=== PATIENT | male | born 1945 | race Caucasian/White ===

== ENCOUNTER → 2018-02-26 10:07 | Outpatient (CLI) | payer MEDICARE, SELFPAY | PROVIDERS: Visit Provider Dermatology | DX: L72.0 Epidermal cyst (principal); L57.0 Actinic keratosis | CPT/HCPCS: 87070; 87077; 87186; 87205 ==

== ENCOUNTER 2021-11-06 20:25 | Emergency (ER) | payer OTHER, SELFPAY ==
[2021-11-06 20:25] VITALS: BP 136/91; PULSE 104; RESP 18; TEMP 36.2; O2SAT 98; BMI 25.0
--- NOTE | 2021-11-06 20:59 | EX.ED.VIS.UR ---
HPI HPI - URI History of Present Illness Chief Complaint: Nosebleed Detail of Chief Complaint: Left sided nosebleed Informant: patient Onset/Context/Timing Onset: Today and Hours Context: Gradual Onset Timing: Continuous Current Severity: Mild Maximum Severity: Mild Narrative Narrative: 76-year-old male on aspirin but no other blood thinners. States he had a spontaneous mild nosebleed from the left side began today around 4 PM. No significant clots. No trauma. No bleeding from the right side. He has had similar nosebleeds before. He has seen ENT in the past. Prior similar symptoms: Yes Recent Illness/Hospitalization: No ROS ROS ED ROS Narrative Denies recent illness. Review of Systems ROS Unobtainable: Denies due to encephalopathy Constitutional Constitutional ED: Denies fever(s) Eyes Eyes: Denies change in vision ENT ENT ED: Denies ear pain Cardiovascular Cardiovascular: Denies chest pain Respiratory/Chest Respiratory/Chest: Denies cough or dyspnea Gastrointestinal Gastrointestinal: Denies abdominal pain, nausea or vomiting Genitourinary Genitourinary ED: Denies dysuria Musculoskeletal Musculoskeletal: Denies myalgias Integumentary Denies rash Neurologic Neurologic: Denies headache(s) Psychiatric Psychiatric: Denies depression Endocrine Endocrinology: Denies polyuria Hematologic/Lymphatic Hematologic/Lymphatic: Denies easy bruising Allergic/Immunologic Allergic/Immunologic ED: Denies urticaria PFSH PFSH Home Medications allopurinol 300 mg PO DAILY 02/02/17 [History Last Taken 02/02/17] amlodipine-benazepril [Lotrel 10-40 MG Capsule] 1 capsule PO DAILY 02/02/17 [History Last Taken 02/02/17] atenolol 25 mg PO DAILY 02/02/17 [History Last Taken 02/02/17] hydrochlorothiazide 25 mg PO DAILY 02/02/17 [History Last Taken 02/02/17] amoxicillin 500 mg PO BID 3 Days #6 cap 11/06/21 [Rx Last Taken Unknown] aspirin 81 mg PO DAILY 11/06/21 [History Last Taken Unknown] Allergy/AdvReac Type Severity Reaction Status Date / Time No Known Allergies Allergy Verified 11/06/21 20:33 Social History Smoking Status: Never smoker EXAM Physical Exam Narrative Exam Narrative: 76 male. Mild nosebleed on the left. No clots. Right side unremarkable. Posterior pharynx there is no bleeding or clots. Neck nontender no lymphadenopathy. Lungs clear to auscultation. Heart regular rhythm no murmur. Abdomen soft nontender. Moving all 4 extremities. No edema. No bruising. Neurologically is awake and alert. Const Vital Signs: 11/06/21 20:25 Temperature 97.1 F L Temperature Source Temporal Pulse Rate 104 H Respiratory Rate 18 Blood Pressure 136/91 H Blood Pressure Mean 106 Pulse Ox 98 Oxygen Delivery Method Room Air Positive well nourished and well developed; Negative for obese, cachectic or contractures General Appearance ED: well developed and NAD; Negative for cachectic, contractures, cyanotic, diaphoretic or pallor Nutritional Appearance: Negative for cachectic or obese HEENT Reports moist mucous membranes normocephalic and atraumatic Eyes PERRL and EOMs intact bilaterally General Eye ED: Negative for pale conjunctiva or scleral icterus Neck no lymphadenopathy, supple, no meningeal signs and no JVD General: Negative for anterior neck swelling or lymphadenopathy Resp normal respiratory effort and clear to auscultation bilaterally Auscultation: Negative for rales, rhonchi or wheezes Cardio S1 normal heart sound, S2 normal heart sound and no murmurs Rate: regular rate Rhythm: regular rhythm GI non-tender, non-distended and no masses Inspection: Negative for abdominal distention Auscultation: normoactive bowel sounds; Negative for hyperactive bowel sounds Palpation: soft; Negative for tender or guarding Back/Spine no CVA tenderness and normal ROM Extremity normal to inspection and full ROM General Extremety ED: Negative for cyanosis or tenderness General Extremity: Negative for cyanosis Neuro oriented x3 Sensorium / Orientation: alert, oriented to person, oriented to place and oriented to time; Negative for orientation impaired, lethargic or stuporous Motor Exam: strength 5/5 throughout Psych mental status grossly normal Attitude: No agitated Mood & Affect: Negative for depressed, anxious or tearful Skin General Skin Exam: Negative for jaundice or pallor Lesions: no lesions Rashes: no rashes MDM MDM MDM Narrative Medical decision making narrative: 76-year-old male with a left anterior nosebleed. There is no trauma. Posterior pharynx and right nares are unremarkable. I placed Afrin-soaked cotton balls in both sides of his nose. Bleeding was well controlled. There is definitely an anterior source. Then I placed a Merisel pack lubricated with antibiotic ointment. Patient tolerated the nasal packing well. Procedures Other Procedures Procedure(s): Left anterior Merisel nasal pack. Patient tolerated well. Lubricated with antibiotic ointment. Discharge Plan Triage Chief Complaint: Nosebleed ED Provider: Clayton Bender Dx/Rx/DC Orders Clinical Impression: Acute anterior epistaxis Instructions: ED Epistaxis (Adult) Prescriptions: New amoxicillin 500 mg capsule 500 mg PO BID 3 Days Qty: 6 RF: 0 No Action atenolol 25 MG tablet 25 mg PO DAILY RF: 0 allopurinol 300 MG tablet 300 mg PO DAILY RF: 0 hydrochlorothiazide 25 MG tablet 25 mg PO DAILY RF: 0 amlodipine-benazepril [Lotrel] 1 CAPSULE capsule 1 capsule PO DAILY RF: 0 aspirin 81 mg Capsule 81 mg PO DAILY RF: 0 Primary Care Provider: Sarah Villar Referrals: Sarah Villar MD [Primary Care Provider] - Buck Kang MD [STAFF PHYSICIAN] - 1-2 Days if not improving Activity Restrictions/Additional Instructions: If it rebleeds and unable to stop return to the emergency department. If it rebleeds hold direct pressure for 20 minutes. Hold your aspirin for the next 2 days. Remove the nasal pack in 2 to 3 days. Follow-up with ear nose and throat doctor if not improving in case need to cauterize it or do a different procedure. Take the antibiotic as long as the packing is in to prevent a sinus infection. Disposition Disposition: Home, Self Care
[2021-11-06 21:33] VITALS: RESP 18
== END 2021-11-06 21:34 | disposition home or self-care (01) ==
PROVIDERS: Emergency Provider Emergency Medicine; PCP Internal Medicine; Visit Provider Emergency Medicine
DX: R04.0 Epistaxis (principal); Z79.82 Long term (current) use of aspirin
CPT/HCPCS: 30901; 99282

== ENCOUNTER 2023-09-20 20:45 | Emergency (ER) | payer MEDICARE, SELFPAY ==
[2023-09-20 20:47] VITALS: BP 158/91; PULSE 99; RESP 16; TEMP 36.6; O2SAT 99; BMI 26.6
--- NOTE | 2023-09-20 21:01 | EDS_ITS ---
HPI History of Present Illness Chief Complaint: Nosebleed Detail of Chief Complaint: Right-sided epistaxis Informant: patient Onset/Context/Timing Onset: Hours (3 hours) Narrative Narrative: Patient presents secondary to right-sided nosebleed for the past 3 hours. He states he has a continuous drip of blood from the right. No recent URI symptoms or facial trauma. He has been seen here in the past with nosebleeds that required packing. He states he has required cautery when following up with ENT. He is currently on baby aspirin daily but no other form of anticoagulation. [facility] Medical History (Updated 09/20/23 @ 22:[address] Clarice Sanchez MD) Gout Hypertension Home Medications allopurinol 300 mg tablet 300 mg PO DAILY 02/02/17 [History Last Taken 02/02/17] amlodipine 10 mg-benazepril 40 mg capsule (Lotrel) 1 capsule PO DAILY 02/02/17 [History Last Taken 02/02/17] atenolol 25 mg tablet 25 mg PO DAILY 02/02/17 [History Last Taken 02/02/17] hydrochlorothiazide 25 mg tablet 25 mg PO DAILY 02/02/17 [History Last Taken 02/02/17] amoxicillin 500 mg capsule 500 mg PO BID 3 days #6 caps 11/06/21 [Rx Last Taken Unknown] aspirin 81 mg capsule 81 mg PO DAILY 11/06/21 [History Last Taken Unknown] Allergy/AdvReac Type Severity Reaction Status Date / Time No Known Allergies Allergy Verified 09/20/23 20:48 Social History Smoking Status: Never smoker ROS [facility] ED Constitutional Constitutional ED: Denies chills or fever(s) Eyes Eyes: Denies discharge from eye(s) ENT ENT ED: Reports other Details: Right nares packed with Kleenex soaked with blood. ; Denies discharge from eye(s), rhinorrhea or sore throat Cardiovascular Cardiovascular: Denies chest pain Respiratory/Chest Respiratory/Chest: Denies cough or dyspnea Gastrointestinal Gastrointestinal: Denies abdominal pain, nausea or vomiting Musculoskeletal Musculoskeletal: Denies back pain or extremity pain Integumentary Denies Abrasions or rash Neurologic Neurologic: Denies headache(s) or weakness Psychiatric Psychiatric: Denies anxiety or depression Allergic/Immunologic Allergic/Immunologic ED: Denies lip swelling or urticaria EXAM Physical Exam Const Vital Signs: 09/20/23 20:47 Temperature 97.8 F Temperature Source Temporal Pulse Rate 99 Respiratory Rate 16 Blood Pressure 158/91 H Blood Pressure Mean 113 Pulse Ox 99 Oxygen Delivery Method Room Air Positive well nourished and well developed General Appearance ED: well developed HEENT Reports moist mucous membranes HEENT Narrative: Blood soaked Kleenex noted in the right nare. Eyes EOMs intact bilaterally Chest Wall inspection of chest normal and palpation of chest normal Resp normal respiratory effort and clear to auscultation bilaterally Cardio regular rate and regular rhythm GI non-tender Palpation: soft Extremity normal to inspection MDM MDM MDM Narrative Medical decision making narrative: Cottonball soaked with Afrin and Cetacaine placed in the right nare. After 10 minutes or so this was removed. Patient has blood diffusely throughout the right nare with no localized location of bleeding identified. 5.5 cm Rhino Rocket is placed without difficulty. Patient is rechecked and has had no further bleeding. He has been given instructions for care at home and has been given an extra syringe should he need to remove the packing emergently. He is referred to ENT who he has seen in the past. Return instructions provided. Discharge Plan Triage Chief Complaint: Nosebleed ED Provider: Clarice Sanchez Dx/Rx/DC Orders Clinical Impression: Epistaxis Instructions: ED Epistaxis (Adult) Prescriptions: No Action atenolol 25 MG tablet 25 mg PO DAILY allopurinol 300 MG tablet 300 mg PO DAILY hydrochlorothiazide 25 MG tablet 25 mg PO DAILY amlodipine-benazepril [Lotrel] 1 CAPSULE capsule 1 capsule PO DAILY aspirin 81 mg Capsule 81 mg PO DAILY amoxicillin 500 mg capsule 500 mg PO BID 3 Days Qty: 6 0RF Primary Care Provider: Sarah Villar Referrals: Marshall Kang MD [Med Staff - Courtesy Staff] - 3-5 Days Sarah Villar MD [Primary Care Provider] - Disposition Disposition: Home, Self Care
[2023-09-20] MEDS: Tetracaine/Benzocaine/Butamben 1 APPLIC TOPICAL (21:05)
[2023-09-20] MEDS: Oxymetazoline 0.05% 1 SPRAY SPRAY.BTL 2 SPRAY NASAL (21:05)
[2023-09-20 22:06] VITALS: BP 135/78; PULSE 85; RESP 18; O2SAT 98
== END 2023-09-20 22:07 | disposition home or self-care (01) ==
PROVIDERS: Emergency Provider Emergency Medicine; PCP Internal Medicine; Visit Provider Emergency Medicine
DX: R04.0 Epistaxis (principal); I10 Essential (primary) hypertension; M10.9 Gout, unspecified; Z79.82 Long term (current) use of aspirin; Z79.899 Other long term (current) drug therapy
CPT/HCPCS: 30901; 99282